=== PATIENT | female | born 1995 | race Caucasian/White ===

== ENCOUNTER → 2017-07-06 | Outpatient (CLI) | payer BC ==
--- NOTE | 2017-07-06 22:55 | MR ---
EXAMINATION TYPE: MR brain wo con DATE OF EXAM: 07/06/2017 COMPARISON: NONE HISTORY: Hyperreflexia and abnormal reflexes with weakness, possible demyelinating disease per order. Headaches with dizziness or hearing loss per patient. TECHNIQUE: Multiplanar, multisequence imaging of the brain and brainstem is performed without IV cont rast. FINDINGS: Diffusion weighted images demonstrate no evidence of a recent infarct or other diffusion abnormality. There is no extraaxial fluid collection or significant white matter signal abnormality. The ventricu lar system and cisternal spaces are normal in size and appearance. The brain volume is age appropria te. Midline structures demonstrate normal morphology. The craniocervical junction appears within normal limits. Normal vascular flow voids are present. The globes are distorted by artifact. Visualized para nasal sinuses are clear. IMPRESSION: No significant white matter changes. No significant finding is seen to account for patien t's symptoms.
== END ==
LOC: RADMRIMAIN 17:25
PROVIDERS: ATTEND Psychiatry & Neurology Neurology
DX: G37.9 Demyelinating disease of central nervous system, unspecified (principal)
CPT/HCPCS: 70551

== ENCOUNTER 2017-07-08 17:57 | Emergency (ER) | payer BC ==
[2017-07-08] MEDS ORDERED: SODIUM CHLORIDE 0.9% 1,000 ML IV STA (18:14)
[2017-07-08 18:24] LABS: Glucose,Whole Blood 108 mg/dL (75-99)
[2017-07-08 18:33] LABS: Basophils % (A) 1 %; Eosinophils # (A) 0.1 k/uL (0-0.7); Eosinophils % (A) 1 %; HCT 39.4 % (34.0-46.0); Lymphocytes # (A) 2.5 k/uL (1.0-4.8); Lymphocytes % (A) 43 %; MCH 28.6 pg (25.0-35.0); MCHC 32.9 g/dL (31.0-37.0); Mean Platelet Volume 7.7; Monocytes # (A) 0.3 k/uL (0-1.0); Monocytes % (A) 4 %; Neutrophils # (A) 2.8 k/uL (1.3-7.7); Neutrophils % (A) 49 %; Platelet Count 215 k/uL (150-450); RBC 4.53 m/uL (3.80-5.40); WBC 5.8 k/uL (3.8-10.6)
--- NOTE | 2017-07-08 18:40 | ED ---
General Adult HPI - General Chief complaint: Dizziness Stated complaint: Dizzy, had a lot of bloody noses Time Seen by Provider: 07/08/17 18:04 Source: patient, RN notes reviewed, old records reviewed Mode of arrival: ambulatory Limitations: no limitations - History of Present Illness Initial comments: Patient 21-year-old female who presents emergency room today with chief complaint of needing blood work. She does admit that she went to urgent care was advised complete emergency room for further evaluation of blood work. States she's had bloody noses. She states that she was just due to some medications that she started to have some corneal oral along with vitamin D. 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 She states she felt short of breath at the time. Patient states that symptoms have improved some. Father states that she had not eaten or drinking all day recently just had some orange juice does feel a little better. Patient states she still feels a little unsteady on her feet. She does admit to feeling congested. She denies any other complaints or symptoms time. - Related Data Home Medications Medication Instructions Recorded Confirmed DULoxetine HCL [Cymbalta] 20 mg PO DAILY 07/08/17 07/08/17 Allergies Allergy/AdvReac Type Severity Reaction Status Date / Time clindamycin Allergy Unknown Verified 07/08/17 18:37 Review of Systems ROS Statement: Those systems with pertinent positive or pertinent negative responses have been documented in the HPI. ROS Other: All systems not noted in ROS Statement are negative. Past Medical History Past Medical History: No Reported History History of Any Multi-Drug Resistant Organisms: None Reported Additional Past Surgical History / Comment(s): bilateral foot surgery Past Psychological History: No Psychological Hx Reported Smoking Status: Never smoker Past Alcohol Use History: None Reported Past Drug Use History: None Reported General Exam - General Exam Comments Initial Comments: General: The patient is awake and alert, in no distress, and does not appear acutely ill. Eye: Pupils are equal, round and reactive to light, extra-ocular movements are intact. No nystagmus. There is normal conjunctiva bilaterally. No signs of icterus. Ears, nose, mouth and throat: There are moist mucous membranes and no oral lesions. Neck: The neck is supple, there is no tenderness or JVD. Cardiovascular: There is a regular rate and rhythm. No murmur, rub or gallop is appreciated. Respiratory: Lungs are clear to auscultation, respirations are non-labored, breath sounds are equal. No wheezes, stridor, rales, or rhonchi. Musculoskeletal: Normal ROM, no tenderness. Strength 5/5. Sensation intact. Pulses equal bilaterally 2+. Neurological: A&O x 3. CN II-XII intact, There are no obvious motor or sensory deficits. Coordination appears grossly intact. Speech is normal. Normal finger nose testing. Normal rapid alternating movements. Strength 5/5 bilaterally both upper and lower extremities. Normal gait. Skin: Skin is warm and dry and no rashes or lesions are noted. Psychiatric: Cooperative, appropriate mood & affect, normal judgment. Limitations: no limitations Course Vital Signs 07/08/17 07/08/17 07/08/17 17:59 18:34 19:20 Temperature 98.1 F 99.0 F Pulse Rate 93 90 Pulse Rate [ 97 Right Sitting] Pulse Rate [ 108 H Right Standing] Pulse Rate [ 81 Right Supine] Respiratory 20 16 18 Rate Blood Pressure 123/75 109/62 Blood Pressure 125/70 [Right Arm Sitting] Blood Pressure 120/73 [Right Arm Standing] Blood Pressure 125/71 [Right Arm Supine] O2 Sat by Pulse 98 97 100 Oximetry - Reevaluation(s) Reevaluation #1: 07/08/17 18:40 Patient had recent MRI of brain just 2 days ago which showed no acute processes. EKG Findings - EKG Comments: EKG Findings:: EKG performed at 1826: A 12-lead EKG was performed and interpreted by me as showing the following: Rate is 75, and rhythm is normal sinus. There are normal QRS complexes and normal R-wave progression. ST segments have no elevation or depression, and NC segments appear normal. Medical Decision Making - Medical Decision Making Reexamined at this time showing no signs of distress. She is resting comfortable. Patient's orthostatic vitals were reviewed. Patient's blood pressure remained stable however, patient's pulse did increase to 15 beats. Patient given a liter bolus here the emergency room states were at this time. Denies any lightheadedness or dizziness at this time. Patient again stating feeling better. Will be discharged home. Patient's remaining labs reviewed unremarkable. Refused chest x-ray stating that she just had this prior at the urgent care was told that was normal. Patient is advised follow-up the family doctor next 2 days and return here to emergency room symptoms increase worsen. - Lab Data Result diagrams: 07/08/17 18:10 07/08/17 18:10 Lab Results 07/08/17 07/08/17 07/08/17 Range/Units 18:10 18:10 18:10 WBC 5.8 (3.8-10.6) k/uL RBC 4.53 (3.80-5.40) m/uL Hgb 13.0 (11.4-16.0) gm/dL Hct 39.4 (34.0-46.0) % MCV 87.0 (80.0-100.0) fL MCH 28.6 (25.0-35.0) pg MCHC 32.9 (31.0-37.0) g/dL RDW 14.0 (11.5-15.5) % Plt Count 215 (150-450) k/uL Neutrophils % 49 % Lymphocytes % 43 % Monocytes % 4 % Eosinophils % 1 % Basophils % 1 % Neutrophils # 2.8 (1.3-7.7) k/uL Lymphocytes # 2.5 (1.0-4.8) k/uL Monocytes # 0.3 (0-1.0) k/uL Eosinophils # 0.1 (0-0.7) k/uL Basophils # 0.0 (0-0.2) k/uL D-Dimer 0.37 (<0.60) mg/L FEU Sodium 141 (137-145) mmol/L Potassium 3.8 (3.5-5.1) mmol/L Chloride 104 (98-107) mmol/L Carbon Dioxide 25 (22-30) mmol/L Anion Gap 12 mmol/L BUN 9 (7-17) mg/dL Creatinine 0.70 (0.52-1.04) mg/dL Est GFR (MDRD) Af Amer >60 (>60 ml/min/1.73 sqM) Est GFR (MDRD) Non-Af >60 (>60 ml/min/1.73 sqM) Glucose 106 H (74-99) mg/dL POC Glucose (mg/dL) (75-99) mg/dL POC Glu Splitter Hand ID Calcium 9.9 (8.4-10.2) mg/dL Total Bilirubin 0.2 (0.2-1.3) mg/dL AST 24 (14-36) U/L ALT 35 (9-52) U/L Alkaline Phosphatase 71 (38-126) U/L Total Protein 7.1 (6.3-8.2) g/dL Albumin 4.5 (3.5-5.0) g/dL Urine Color Urine Appearance (Clear) Urine pH (5.0-8.0) Ur Specific [place] (1.001-1.035) Urine Protein (Negative) Urine Glucose (UA) (Negative) Urine Ketones (Negative) Urine Blood (Negative) Urine Nitrite (Negative) Urine Bilirubin (Negative) Urine Urobilinogen (<2.0) mg/dL Ur Leukocyte Esterase (Negative) Urine RBC (0-5) /hpf Urine WBC (0-5) /hpf Ur Squamous Epith Cells (0-4) /hpf Urine Mucus (None) /hpf Urine HCG, Qual (Not Detectd) 07/08/17 07/08/17 07/08/17 Range/Units 18:23 19:00 19:00 WBC (3.8-10.6) k/uL RBC (3.80-5.40) m/uL Hgb (11.4-16.0) gm/dL Hct (34.0-46.0) % MCV (80.0-100.0) fL MCH (25.0-35.0) pg MCHC (31.0-37.0) g/dL RDW (11.5-15.5) % Plt Count (150-450) k/uL Neutrophils % % Lymphocytes % % Monocytes % % Eosinophils % % Basophils % % Neutrophils # (1.3-7.7) k/uL Lymphocytes # (1.0-4.8) k/uL Monocytes # (0-1.0) k/uL Eosinophils # (0-0.7) k/uL Basophils # (0-0.2) k/uL D-Dimer (<0.60) mg/L FEU Sodium (137-145) mmol/L Potassium (3.5-5.1) mmol/L Chloride (98-107) mmol/L Carbon Dioxide (22-30) mmol/L Anion Gap mmol/L BUN (7-17) mg/dL Creatinine (0.52-1.04) mg/dL Est GFR (MDRD) Af Amer (>60 ml/min/1.73 sqM) Est GFR (MDRD) Non-Af (>60 ml/min/1.73 sqM) Glucose (74-99) mg/dL POC Glucose (mg/dL) 108 H (75-99) mg/dL POC Glu Splitter Hand ID Annia Martinez Calcium (8.4-10.2) mg/dL Total Bilirubin (0.2-1.3) mg/dL AST (14-36) U/L ALT (9-52) U/L Alkaline Phosphatase (38-126) U/L Total Protein (6.3-8.2) g/dL Albumin (3.5-5.0) g/dL Urine Color Light Yellow Urine Appearance Clear (Clear) Urine pH 6.5 (5.0-8.0) Ur Specific [place] 1.007 (1.001-1.035) Urine Protein Negative (Negative) Urine Glucose (UA) Negative (Negative) Urine Ketones Negative (Negative) Urine Blood Negative (Negative) Urine Nitrite Negative (Negative) Urine Bilirubin Negative (Negative) Urine Urobilinogen <2.0 (<2.0) mg/dL Ur Leukocyte Esterase Trace H (Negative) Urine RBC 1 (0-5) /hpf Urine WBC 2 (0-5) /hpf Ur Squamous Epith Cells 1 (0-4) /hpf Urine Mucus Rare H (None) /hpf Urine HCG, Qual Not Detected (Not Detectd) Disposition Clinical Impression: Orthostatic dizziness Disposition: HOME SELF-CARE Condition: Good Instructions: Dizziness (ED) Additional Instructions: Please increase oral fluids as discussed and follow-up the family doctor over the next 2 days. Please return here to emergency room if any symptoms increase or worsen or for any other concerns. Referrals: Nguyen Marin MD [Primary Care Provider] - 1-2 days Time of Disposition: 19:30
[2017-07-08 18:41] LABS: ALT 35 U/L (9-52); AST 24 U/L (14-36); Albumin 4.5 g/dL (3.5-5.0); Alkaline Phosphatase 71 U/L (38-126); Anion Gap 12 mmol/L; Blood Urea Nitrogen 9 mg/dL (7-17); Calcium 9.9 mg/dL (8.4-10.2); Carbon Dioxide 25 mmol/L (22-30); Chloride 104 mmol/L (98-107); Glucose 106 mg/dL (74-99); Potassium 3.8 mmol/L (3.5-5.1); Sodium 141 mmol/L (137-145); Total Bilirubin 0.2 mg/dL (0.2-1.3); Total Protein 7.1 g/dL (6.3-8.2)
[2017-07-08 19:18] LABS: Appearance,Urine Clear (Clear); Bilirubin,Urine Negative (Negative); Blood,Urine Negative (Negative); Color,Urine Light Yellow; Glucose,Urine (UA) Negative (Negative); Ketones,Urine Negative (Negative); Leukocyte Esterase,Urine Trace (Negative); Mucus,Urine Rare /hpf; Nitrite,Urine Negative (Negative); PH, Urine 6.5 (5.0-8.0); Protein,Urine Negative (Negative); RBC,Urine 1 /hpf (0-5); Specific Gravity,Urine 1.007 (1.001-1.035); Squamous Epithelial Cell,Urine 1 /hpf (0-4); Urobilinogen,Urine <2.0 mg/dL (<2.0); WBC,Urine 2 /hpf (0-5)
[2017-07-08 19:40] VITALS: BP 124/58; PULSE 95; RESP 16; TEMP 98.7
[2017-07-08 23:15] LABS: Hemoglobin A1C 4.8 % (4.0-6.0)
== END 2017-07-08 19:42 | disposition home or self-care (01) ==
LOC: EC 17:57
DX: R42 Dizziness and giddiness (principal); R04.0 Epistaxis; Z79.899 Other long term (current) drug therapy; Z88.1 Allergy status to other antibiotic agents
CPT/HCPCS: 36415; 80053; 81001; 81025; 83036; 85025; 85379; 87086; 93005; 96360; 99284

== ENCOUNTER → 2017-07-14 | Outpatient (CLI) | payer BC ==
--- NOTE | 2017-07-14 15:12 | MR ---
EXAMINATION TYPE: MR cervical spine wo con DATE OF EXAM: 07/14/2017 COMPARISON: NONE HISTORY: Cervical disc displacement,Abn reflex TECHNIQUE: Multiplanar, multisequence images of the cervical spine were acquired. C2-C3: No evidence for degenerative disc disease. No disc bulge/herniation or protrusion. No Canal stenosis. Foramina are patent bilaterally. C3-C4: No evidence for degenerative disc disease. No disc bulge/herniation or protrusion. No Canal stenosis. Foramina are patent bilaterally. C4-C5: No evidence for degenerative disc disease. No disc bulge/herniation or protrusion. No Canal stenosis. Foramina are patent bilaterally. C5-C6: There may be some mild right foraminal narrowing at C5-6 from uncovertebral joint hypertrophy. Minimal left foraminal narrowing may be present. Correlate with symptoms. C6-C7: No evidence for degenerative disc disease. No disc bulge/herniation or protrusion. No Canal stenosis. Foramina are patent bilaterally. C7-T1: No evidence for degenerative disc disease. No disc bulge/herniation or protrusion. No Canal stenosis. Foramina are patent bilaterally. There is normal alignment. Cervical spinal cord is of normal signal. Craniovertebral junction relat ionships are within normal limits. Cervical disc heights are preserved. Hydration levels appear norm al. IMPRESSION: There may be some uncovertebral joint hypertrophy greater on the right at C5-6 foraminal narrowing. 2. MRI cervical spine is otherwise unremarkable.
== END | disposition home or self-care (01) ==
LOC: RADMRIMAIN 08:20
PROVIDERS: ATTEND Psychiatry & Neurology Neurology
DX: M50.20 Other cervical disc displacement, unspecified cervical region (principal); R29.2 Abnormal reflex; R20.2 Paresthesia of skin
CPT/HCPCS: 72141

== ENCOUNTER → 2018-01-02 | Outpatient (CLI) | payer BC ==
[2018-01-02 15:49] LABS: Appearance,Urine Clear (Clear); Basophils % (A) 1 %; Bilirubin,Urine Negative (Negative); Blood,Urine Negative (Negative); Color,Urine Colorless; Eosinophils # (A) 0.1 k/uL (0-0.7); Eosinophils % (A) 2 %; Glucose,Urine (UA) Negative (Negative); HCT 42.5 % (34.0-46.0); HGB 14.4 gm/dL (11.4-16.0); Ketones,Urine Negative (Negative); Leukocyte Esterase,Urine Negative (Negative); Lymphocytes % (A) 35 %; MCH 30.5 pg (25.0-35.0); MCHC 33.8 g/dL (31.0-37.0); MCV 90.4 fL (80.0-100.0); Mean Platelet Volume 7.5; Monocytes # (A) 0.2 k/uL (0-1.0); Monocytes % (A) 4 %; Neutrophils # (A) 3.3 k/uL (1.3-7.7); Neutrophils % (A) 57 %; Nitrite,Urine Negative (Negative); Platelet Count 212 k/uL (150-450); Protein,Urine Negative (Negative); RDW 14.4 % (11.5-15.5); Specific Gravity,Urine 1.005 (1.001-1.035); Urobilinogen,Urine <2.0 mg/dL (<2.0); WBC 5.7 k/uL (3.8-10.6)
[2018-01-02 16:07] LABS: ALT 23 U/L (9-52); AST 19 U/L (14-36); Albumin 4.5 g/dL (3.5-5.0); Alkaline Phosphatase 55 U/L (38-126); Anion Gap 11 mmol/L; Blood Urea Nitrogen 10 mg/dL (7-17); C Reactive Protein <5.0 mg/L (<10.0); Calcium 9.5 mg/dL (8.4-10.2); Carbon Dioxide 28 mmol/L (22-30); Chloride 101 mmol/L (98-107); Creatine Kinase 38 U/L (30-135); Glucose 104 mg/dL (74-99); Sodium 140 mmol/L (137-145); Total Bilirubin 0.1 mg/dL (0.2-1.3); Total Protein 6.9 g/dL (6.3-8.2); Uric Acid 3.6 mg/dL (3.7-7.4)
[2018-01-02 16:21] LABS: T4, Free (Free Thyroxine) 0.95 ng/dL (0.78-2.19)
[2018-01-02 18:25] LABS: Erythrocyte Sedimentation Rate 5 mm/hr (0-20)
[2018-01-03 00:45] LABS: Rheumatoid Factor 7 IU/mL (0-15)
[2018-01-03 00:55] LABS: Protein, Total 6.9 g/dL (6.2-8.2)
[2018-01-03 01:03] LABS: Vitamin D 25 Hydroxy 20.4 ng/mL (30.0-100.0)
[2018-01-03 01:38] LABS: Shrimp IgE <0.10 kU/L; Walnut IgE (Food) <0.10 kU/L
[2018-01-03 01:55] LABS: Cardiolipin Ab IgG Interp NEGATIVE (NEGATIVE); Cardiolipin Ab IgM Interp NEGATIVE (NEGATIVE); Cardiolipin IgA Antibody <0.5 U/mL; Cardiolipin IgM Antibody 0.8 U/mL; Cyclic Citrullinated Pep IgG NEGATIVE (NEGATIVE); DNA Double-Stranded NEGATIVE (NEGATIVE); RNP <0.2 AI; Scleroderma SC-70 Ab <0.2 AI
[2018-01-03 01:57] LABS: Hepatitis C IgG Antibody Non-Reactive (Non-Reactive)
[2018-01-03 05:58] LABS: Angiotensin-1 Converting Enz. 61 U/L (8-52)
[2018-01-03 11:10] LABS: HLA B27 NEGATIVE
[2018-01-03 13:32] LABS: Apple IgE Class CLASS 0; Beef IgE <0.35 kU/L (<0.35); Beef IgE Class CLASS 0; Crab IgE <0.35 kU/L (<0.35); Crab IgE Class CLASS 0; Lettuce IgE Class CLASS 0; Oat IgE Class CLASS 0; Yeast Bakers/Brew IgE <0.35 kU/L (<0.35)
[2018-01-03 13:33] LABS: Avocado Class CLASS 0; Banana IgE Class CLASS 0; Celery IgE <0.35 kU/L (<0.35); Celery IgE Class CLASS 0; Chicken IgE Class CLASS 0; Chocolate IgE Class CLASS 0; Coffee IgE <0.35 kU/L (<0.35); Coffee IgE Class CLASS 0; Cow's Milk IgE Class CLASS 0; Egg White IgE <0.35 kU/L (<0.35); Hazelnut IgE <0.35 kU/L (<0.35); Hazelnut IgE Class CLASS 0; Kiwi IgE <0.35 kU/L (<0.35); Peanut IgE <0.35 kU/L (<0.35); Potato IgE <0.35 kU/L (<0.35); Potato IgE Class CLASS 0; Soybean IgE <0.35 kU/L (<0.35)
[2018-01-03 13:58] LABS: APTT 44 Sec(s) (<43); APTT 1:1 Mix 40 Sec(s) (<43); Dilute Russell Viper Venom 35 Sec(s) (<44)
[2018-01-03 14:34] LABS: C-ANCA <1:20 Titer (<1:20); P-ANCA <1:20 Titer (<1:20)
[2018-01-04 04:19] LABS: Aldolase 2.6 U/L (1.2-7.6)
[2018-01-04 12:34] LABS: Pork IgE Class CLASS 0
[2018-01-04 12:35] LABS: Egg Yolk IgE Class CLASS 0; Onion IgE <0.35 kU/L (<0.35); Onion IgE Class CLASS 0; Salmon IgE <0.35 kU/L (<0.35); Salmon IgE Class CLASS 0
[2018-01-04 12:36] LABS: Gluten IgE Class CLASS 0; Latex IgE Class CLASS 0; Lobster IgE <0.35 kU/L (<0.35); Lobster IgE Class CLASS 0; Tea IgE <0.35 kU/L (<0.35)
== END | disposition home or self-care (01) ==
LOC: LABWHC1 14:49
PROVIDERS: ATTEND Internal Medicine Rheumatology
DX: J30.89 Other allergic rhinitis (principal); R76.8 Other specified abnormal immunological findings in serum
CPT/HCPCS: 36415; 80053; 81003; 82085; 82164; 82306; 82550; 83883; 84165; 84439; 84443; 84550; 85025; 85613; 85652; 85730; 86001; 86003; 86038; 86140; 86147; 86160; 86162; 86200; 86225; 86235; 86255; 86334; 86431; 86803; 86812; 87340

== ENCOUNTER → 2018-02-01 | Outpatient (CLI) | payer BC ==
[2018-02-02 01:00] LABS: Cyclic Citrullinated Pep IgG NEGATIVE (NEGATIVE); Gliadin AB IgA, Unit 9.2 U/mL
[2018-02-03 04:47] LABS: Angiotensin-1 Converting Enz. 75 U/L (8-52)
[2018-02-05 11:56] LABS: Anti-Endomysial IgA Antibody <1:10 Titer (<1:10)
== END | disposition home or self-care (01) ==
LOC: LABWHC1 16:01
PROVIDERS: ATTEND Nurse Practitioner Family
DX: K90.0 Celiac disease (principal); R74.8 Abnormal levels of other serum enzymes
CPT/HCPCS: 36415; 82164; 83516; 86200; 86255

== ENCOUNTER → 2018-02-22 | Outpatient (CLI) | payer BC ==
[2018-02-22 15:22] LABS: Basophils % (A) 0 %; Eosinophils % (A) 1 %; HGB 13.8 gm/dL (11.4-16.0); Lymphocytes # (A) 2.1 k/uL (1.0-4.8); Lymphocytes % (A) 47 %; MCHC 33.7 g/dL (31.0-37.0); MCV 89.2 fL (80.0-100.0); Mean Platelet Volume 7.6; Monocytes # (A) 0.3 k/uL (0-1.0); Monocytes % (A) 7 %; Neutrophils % (A) 43 %; Platelet Count 194 k/uL (150-450); RDW 13.4 % (11.5-15.5); WBC 4.5 k/uL (3.8-10.6)
[2018-02-22 19:47] LABS: Protein, Total 6.9 g/dL (6.2-8.2)
[2018-02-23 05:50] LABS: Toxoplasma Antibody (IgG) <3.0 IU/mL (<7.2); Toxoplasma Antibody (IgM) <3.0 AU/mL (<8.0)
== END | disposition home or self-care (01) ==
LOC: LABWHC1 14:20
PROVIDERS: ATTEND Nurse Practitioner Family
DX: R59.1 Generalized enlarged lymph nodes (principal); R53.83 Other fatigue; J31.2 Chronic pharyngitis; R79.89 Other specified abnormal findings of blood chemistry
CPT/HCPCS: 36415; 83883; 84165; 85025; 86038; 86644; 86645; 86698; 86777; 86778

== ENCOUNTER → 2018-03-02 | Outpatient (CLI) | payer BC ==
[2018-03-02 13:26] LABS: ALT 27 U/L (9-52); AST 21 U/L (14-36); Albumin 4.2 g/dL (3.5-5.0); Alkaline Phosphatase 59 U/L (38-126); Anion Gap 8 mmol/L; Blood Urea Nitrogen 6 mg/dL (7-17); Calcium 9.4 mg/dL (8.4-10.2); Carbon Dioxide 28 mmol/L (22-30); Chloride 105 mmol/L (98-107); Glucose 89 mg/dL (74-99); Potassium 4.2 mmol/L (3.5-5.1); Sodium 141 mmol/L (137-145); Total Bilirubin 0.4 mg/dL (0.2-1.3); Total Protein 6.9 g/dL (6.3-8.2)
[2018-03-02 18:33] LABS: Rheumatoid Factor 10 IU/mL (0-15)
== END | disposition home or self-care (01) ==
LOC: LABWHC1 12:17
PROVIDERS: ATTEND Internal Medicine Critical Care Medicine
DX: R06.00 Dyspnea, unspecified (principal)
CPT/HCPCS: 36415; 80053; 82164; 85652; 86038; 86431

== ENCOUNTER → 2018-03-09 | Outpatient (CLI) | payer BC | END | disposition home or self-care (01) | LOC: RADCTMAIN 18:36 | PROVIDERS: ATTEND Internal Medicine Critical Care Medicine | DX: Z53.9 Procedure and treatment not carried out, unspecified reason (principal) | CPT/HCPCS: 71260 ==

== ENCOUNTER → 2018-03-23 | Outpatient (CLI) | payer BC ==
[2018-03-23 12:42] LABS: T4, Free (Free Thyroxine) 0.94 ng/dL (0.78-2.19)
[2018-03-23 16:24] LABS: Thyroid Peroxidase Antibodies 42.4 U/mL (0.0-60.0)
== END ==
LOC: LABWHC1 11:17
PROVIDERS: ATTEND Otolaryngology
DX: L65.9 Nonscarring hair loss, unspecified (principal); R53.83 Other fatigue
CPT/HCPCS: 36415; 82607; 82728; 84439; 84443; 86376; 86618

== ENCOUNTER → 2018-04-25 | Outpatient (CLI) | payer BC | LOC: LABWHC1 15:17 | PROVIDERS: ATTEND Otolaryngology | DX: E06.9 Thyroiditis, unspecified (principal) | CPT/HCPCS: 36415; 86376 ==

== ENCOUNTER 2018-05-07 11:59 | Day surgery (SDC) | payer BC ==
[~2018-05-07 11:59] MED LIST: LACTATED RINGERS 1,000 ML IV SCH
[2018-05-07] MEDS ORDERED: LIDOCAINE 1% 20 ML VIAL (10MG/ML) FOR IV START INTRADERMA ONE (12:57)
[2018-05-07 13:01] VITALS: RESP 16; TEMP 98.2
[2018-05-07] MEDS ORDERED: MIDAZOLAM 2 MG/2 ML VIAL ONE (13:48)
[2018-05-07] MEDS ORDERED: fentaNYL (PF) 50 MCG/ML 2 ML AMP ONE (13:48)
[2018-05-07] MEDS ORDERED: LIDOCAINE 1% INJ 10MG/ML (20 ML MDV) ONE (13:48)
[2018-05-07] MEDS ORDERED: ETOMIDATE 2 MG/ML 10 ML VIAL ONE (13:48)
--- NOTE | 2018-05-07 14:17 | P.PCN ---
Date of Procedure: 05/07/18 Procedure(s) Performed: Procedure: Esophagogastroduodenoscopy and biopsy. Preoperative diagnosis: Chronic stomach issues and recent onset of dysphagia. Postoperative diagnosis: 1. Small sliding hiatal hernia with no obvious esophagitis or complicated reflux disease. 2. Mild gastritis with few small and diminutive polyps in the gastric body. 3. Multiple biopsies obtained from the duodenum, antrum and esophagus as well as the gastric body polyps. Preparation sedation: Was provided by anesthesia. Brief clinical history: The patient is a 22-year-old female who is scheduled for this evaluation because of chronic reflux symptoms and stomach issues. The patient has recent onset of dysphagia but no other alarm symptoms. This evaluation is to assess the degree of esophagitis and rule out complicated reflux disease, eosinophilic esophagitis or other pathology. Procedure: With the patient on her left lateral decubitus position and after informed consent and adequate sedation, I passed the Olympus-GIF 160 video upper endoscope through the cricopharyngeus down the esophagus. GE junction was around 40 cm from the incisors and there was a small sliding hiatal hernia but no obvious esophagitis or complicated reflux disease. The endoscope was then passed into the stomach which was insufflated with air and inspected in detail including the retroflex view in the cardia. There was minimal mottling and erythema in the stomach but no ulcers or erosions. There were occasional small and diminutive gastric body polyps. Pyloric channel, duodenal bulb, post bulbar area and descending duodenum appeared within normal limits. Because of her symptoms, I obtained biopsies from the duodenum, antrum and esophagus in addition to biopsies of the gastric body polyps then the endoscope was withdrawn. The patient tolerated the procedure well. Plan: The patient was reassured. Will await biopsy results. Further plans can be made based on her course and biopsy results. She will follow-up with you as planned, and I will keep you updated on her progress.
[2018-05-07 14:34] VITALS: BP 107/70; PULSE 88
== END 2018-05-07 15:09 | disposition home or self-care (01) ==
LOC: ORWHC2ENDO 11:59
DX: K31.7 Polyp of stomach and duodenum (principal); K29.70 Gastritis, unspecified, without bleeding; K44.9 Diaphragmatic hernia without obstruction or gangrene; F32.9 Major depressive disorder, single episode, unspecified; Z79.899 Other long term (current) drug therapy; Z88.1 Allergy status to other antibiotic agents; Z91.012 Allergy to eggs
CPT/HCPCS: 81025; 88305; 84703; 43239; J2250; J2001; J3010

== ENCOUNTER → 2018-05-24 | Day surgery (SDC) | payer BC ==
[2018-05-21 15:49] VITALS: BMI 19.6
[~2018-05-24] MED LIST changes: +ALBUTEROL NEB (CONC) 2.5 MG/0.5 ML INHALATION ONE; +ATROPINE SULFATE 0.4 MG/ML 1 ML VIAL IM ONE; +LACTATED RINGERS 1,000 ML IV ONE; +LIDOCAINE 1% 20 ML VIAL (10MG/ML) FOR IV START INTRADERMA PRN; +LIDOCAINE 2% (PF) 20 MG/ML 2 ML AMP INHALATION ONE; +LIDOCAINE VISCOUS 2% 15 ML CUP MUCOUS MEM ONE; +MIDAZOLAM 2 MG/2 ML VIAL IV PRN
[2018-05-24 11:49] VITALS: BP 126/72; PULSE 91; RESP 16; TEMP 98.5
== END ==
LOC: ORWHC2ENDO 11:15
PROVIDERS: ATTEND Internal Medicine Critical Care Medicine
DX: R06.00 Dyspnea, unspecified (principal); Z53.8 Procedure and treatment not carried out for other reasons; F41.9 Anxiety disorder, unspecified
CPT/HCPCS: 84703; J0461

== ENCOUNTER → 2018-07-23 | Outpatient (CLI) | payer BC ==
--- NOTE | 2018-07-23 15:52 | US ---
EXAMINATION TYPE: US kidneys/renal and bladder DATE OF EXAM: 07/23/2018 COMPARISON: NONE CLINICAL HISTORY: R30.0 Dysuria. bilateral flank pain EXAM MEASUREMENTS: Right Kidney: 10.4 x 3.5 x 4.4 cm Left Kidney: 9.8 x 4.2 x 5.2 cm Right Kidney: No hydronephrosis or masses seen Left Kidney: No hydronephrosis or masses seen Bladder: wnl Bilateral Jets seen: Yes There is no evidence for hydronephrosis at this point in time. No nephrolithiasis is seen. No madi s are identified. The urinary bladder is anechoic. Bilateral ureteral jets are seen. Incidentally noted cholelithiasis. IMPRESSION: No sonographic evidence of hydronephrosis or nephrolithiasis. Incidentally noted cholelithiasis.
== END | disposition home or self-care (01) ==
LOC: RADUSWWP 14:54
PROVIDERS: ATTEND Family Medicine
DX: K80.20 Calculus of gallbladder without cholecystitis without obstruction (principal)
CPT/HCPCS: 76770

== ENCOUNTER → 2018-09-26 | Outpatient (CLI) | payer BC ==
--- NOTE | 2018-09-26 13:22 | CT ---
EXAMINATION TYPE: CT sinus wo con DATE OF EXAM: 09/26/2018 COMPARISON: MRI brain July 06, 2017 HISTORY: Chronic sinusitis per order. Recurrent facial pain. CT DLP: 625 mGycm. Automated Exposure Control for Dose Reduction was Utilized. TECHNIQUE: CT scan of the sinuses is performed without contrast, axial images are obtained, coronal r eformatted images are also reviewed. FINDINGS: The paranasal sinuses including the frontal, ethmoid, sphenoid, and maxillary sinuses bila terally are well-aerated without abnormal opacification. No suspicious opacification or air-fluid lev els are seen. The ostiomeatal complex is patent bilaterally on the coronal images. Visualized portion of mastoid air cells show no abnormal opacification. The globes are intact bilate rally. IMPRESSION: No significant acute or chronic paranasal sinus disease.
== END | disposition home or self-care (01) ==
LOC: RADCTMAIN 12:59
PROVIDERS: ATTEND Otolaryngology
DX: J32.9 Chronic sinusitis, unspecified (principal)
CPT/HCPCS: 70486

== ENCOUNTER → 2018-11-22 | Outpatient (CLI) | payer BC ==
[2018-11-23 11:25] LABS: Angiotensin-1 Converting Enz. 61 U/L (8-52)
== END | disposition home or self-care (01) ==
LOC: LABWHC1 10:46
PROVIDERS: ATTEND Nurse Practitioner Family
DX: R53.83 Other fatigue (principal); R59.1 Generalized enlarged lymph nodes; R21 Rash and other nonspecific skin eruption; T78.3XXA Angioneurotic edema, initial encounter
CPT/HCPCS: 36415; 82164; 83520; 86038; 86160; 86161

== ENCOUNTER 2019-01-12 16:14 | Emergency (ER) | payer BC ==
[2019-01-12 16:19] VITALS: BP 110/75; PULSE 96; RESP 18; TEMP 98.9
--- NOTE | 2019-01-12 16:44 | XR ---
EXAMINATION TYPE: XR soft tissue neck DATE OF EXAM: 01/12/2019 COMPARISON: NONE HISTORY: Neck pain TECHNIQUE: 2 views FINDINGS: Vertebra have normal spacing and alignment. Posterior elements are intact. There are no cer vical ribs. Atlantoaxial facet joint is normal. Epiglottis is normal. Subglottic trachea appears norm al. IMPRESSION: Normal cervical soft tissue exam.
--- NOTE | 2019-01-12 17:13 | ED ---
ENT HPI - General Chief complaint: ENT Stated complaint: SORE THROAT Time Seen by Provider: 01/12/19 16:20 Source: patient Mode of arrival: ambulatory Limitations: no limitations - History of Present Illness Initial comments: 23-year-old female sent in for 1 day of sore throat P patient states she has had a sore throat for 1 day. She states is painful swelling. Patient denies any difficulty swallowing or breathing. Patient denies nausea vomiting abdominal pain. Patient denies . Patient denies ALLERGIES to penicillins. Remaining review of systems negative upon arrival patient appears well no signs of acute distress. - Related Data Home Medications Medication Instructions Recorded Confirmed DULoxetine HCL [Cymbalta] 20 mg PO DAILY 07/08/17 05/21/18 Amino Acids 700 mg PO DAILY PRN 05/04/18 05/21/18 L.acidoph,Paracasei, B.lactis 1 each PO DAILY 05/04/18 05/21/18 [Probiotic] Albuterol Sulfate [Proair Hfa] 1 - 2 puff INHALATION DIRECTED 05/21/18 05/21/18 PRN Allergies Allergy/AdvReac Type Severity Reaction Status Date / Time clindamycin Allergy PSYCHOLOGICAL Verified 01/12/19 16:16 SYMPTOMS Egg Derived Allergy RASH, SOB Verified 01/12/19 16:16 Milk Containing Products Allergy RASH, SOB Verified 01/12/19 16:16 [Dairy] peanut Allergy RASH, SOB Verified 01/12/19 16:16 tomato Allergy RASH, SOB Verified 01/12/19 16:16 wheat Allergy Anaphylaxis Verified 01/12/19 16:16 Review of Systems ROS Statement: Those systems with pertinent positive or pertinent negative responses have been documented in the HPI. ROS Other: All systems not noted in ROS Statement are negative. Past Medical History Past Medical History: Asthma, GERD/Reflux Additional Past Medical History / Comment(s): MULTIPLE FOOD ALLERGIES-CAUSES FREQUENT RESPIRATORY DISTRESS, migraines, seizures as , "occ irregular heart beat", "allergic or exercise induced asthma", has respiratory infection past year-[place] and not dx but thinks walking pneumonia, hiatal hernia, IBS, gallstone, auto immune disorder-"no specific dx" History of Any Multi-Drug Resistant Organisms: None Reported Past Surgical History: Orthopedic Surgery Additional Past Surgical History / Comment(s): bilateral foot surgery/ tendons, wisdom teeth Past Anesthesia/Blood Transfusion Reactions: Motion Sickness, Postoperative Nausea & Vomiting (PONV) Past Psychological History: Anxiety, Depression Smoking Status: Never smoker Past Alcohol Use History: None Reported Past Drug Use History: None Reported - Past Family History Mother Family Medical History: No Reported History Father Family Medical History: Cancer General Exam - General Exam Comments Initial Comments: General: The patient is awake and alert, in no distress, and does not appear acutely ill. Eye: +3 mm pupils are equal, round and reactive to light, extra-ocular movements are intact. No nystagmus. There is normal conjunctiva bilaterally. No signs of icterus. No photophobia Ears, nose, mouth and throat: There are moist mucous membranes and no oral lesions. Oropharynx is erythematous tonsils enlargement bilaterally with tonsillar exudates. Uvula midline. Tympanic membranes are not erythematous or is no effusions bulging or retraction. No tenderness to palpation of the mastoid. No anterior cervical lymphadenopathy. Rhinorrhea, clear and bilateral nares. No tripoding, no drooling. Neck: The neck is supple, there is no tenderness or JVD. No nuchal rigidity Cardiovascular: There is a regular rate and rhythm. No murmur, rub or gallop is appreciated. Respiratory: Lungs are clear to auscultation, respirations are non-labored, breath sounds are equal. No wheezes, stridor, rales, or rhonchi. No retractions or abdominal breathing. Gastrointestinal: Soft, non-distended, non-tender abdomen without masses or organomegaly noted. There is no rebound or guarding present. Bowel sounds are unremarkable. Musculoskeletal: Normal ROM, no tenderness. Strength 5/5. Sensation intact. Radial pulses equal bilaterally 2+. Neurological: A&O x 3. CN II-XII intact, There are no obvious motor or sensory deficits. Coordination appears grossly intact. Speech appears normal, no muffling. Skin: Skin is warm and dry and no rashes or lesions are noted. No extremity edema Psychiatric: Cooperative Limitations: no limitations Course Vital Signs 01/12/19 16:16 Temperature 98.9 F Pulse Rate 96 Respiratory 18 Rate Blood Pressure 110/75 O2 Sat by Pulse 97 Oximetry Medical Decision Making - Medical Decision Making Appearing 23-year-old female presented for sore throat x 1 day. Patient given 8 mg by mouth Decadron. Oropharynx examination today for strep pharyngitis. Patient be treated with amoxicillin. Return parameters were discussed at length. However at this time there is no complicated process seen, uvula midline no tripoding or muffled voice. Patient is agreeable care plan as well as discharge. Patient is discharged appearing well with instruction to follow- up with outpatient primary care provider Disposition Clinical Impression: Anterior neck pain Disposition: HOME SELF-CARE Condition: Good Additional Instructions: Please use medication as discussed. Please follow-up with family doctor in the next 2 days of symptoms, and Keren as discussed. Please return to emergency room if the symptoms increase or worsen or for any other concerns. Is patient prescribed a controlled substance at d/c from ED?: No Referrals: Dillon Payne III, MD [STAFF PHYSICIAN] - 1-2 days Gary Veliz DO [Doctor of Osteopathic Medicine] - 1-2 days Time of Disposition: 17:13
== END 2019-01-12 17:38 | disposition home or self-care (01) ==
LOC: EC 16:14
DX: M54.2 Cervicalgia (principal); J34.89 Other specified disorders of nose and nasal sinuses; J45.909 Unspecified asthma, uncomplicated; F32.9 Major depressive disorder, single episode, unspecified; F41.9 Anxiety disorder, unspecified; Z88.1 Allergy status to other antibiotic agents; Z91.010 Allergy to peanuts; Z91.011 Allergy to milk products; Z91.012 Allergy to eggs; Z91.018 Allergy to other foods; Z79.899 Other long term (current) drug therapy
CPT/HCPCS: 70360; 99283

== ENCOUNTER → 2019-04-09 | Outpatient (CLI) | payer BC ==
--- NOTE | 2019-04-09 12:49 | CT ---
EXAMINATION TYPE: CT soft tissue neck w con DATE OF EXAM: 04/09/2019 COMPARISON: March 09, 2018 HISTORY: dysphagia, swelling, hoarseness CT DLP: 272.8 mGycm CONTRAST: CT scan of the neck is performed with IV Contrast, patient injected with 100 mL of Isovue 300. Contrast enhanced CT of the neck was performed from the skull base through the lung apices. AIRWAY: The supraglottic, glottic, and subglottic portions of the airway appear patent and free of mass. SALIVARY GLANDS: The submandibular and parotid glands are free of mass or inflammatory process. THYROID GLAND: No nodules or masses seen. LYMPH NODES: No adenopathy seen greater than 1cm. LUNG APICES: No nodule or mass is seen. OTHER: Vascular structures are patent. No significant degenerative change of the cervical spine. N o abscess seen. IMPRESSION: UNREMARKABLE CT SOFT TISSUES OF THE NECK.
== END ==
LOC: RADCTMAIN 11:48
PROVIDERS: ATTEND Otolaryngology
DX: F45.8 Other somatoform disorders (principal); R07.0 Pain in throat; M54.2 Cervicalgia; A69.20 Lyme disease, unspecified
CPT/HCPCS: 70491; Q9967

== ENCOUNTER 2019-04-19 19:22 | Emergency (ER) | payer BC ==
[2019-04-19 19:34] VITALS: RESP 18
[2019-04-19] MEDS ORDERED: KETOROLAC 30 MG/ML 1 ML VIAL IM STA (20:24)
--- NOTE | 2019-04-19 20:58 | XR ---
EXAMINATION TYPE: XR elbow complete LT DATE OF EXAM: 04/19/2019 COMPARISON: NONE HISTORY: Elbow pain after fall TECHNIQUE: 3 views FINDINGS: Joint spaces are normal. I see no fracture nor dislocation. There is however a small sdc teacher ior fat pad suggestive of elbow joint effusion. IMPRESSION: Elbow joint effusion. Occult fracture is possible. No displaced fracture seen.
--- NOTE | 2019-04-19 21:03 | XR ---
EXAMINATION TYPE: XR wrist complete LT DATE OF EXAM: 04/19/2019 COMPARISON: NONE HISTORY: Pain TECHNIQUE: 4 views FINDINGS: Carpal bones appear intact. Joint spaces appear normal. I see no fracture nor dislocation. IMPRESSION: Negative left wrist exam.
--- NOTE | 2019-04-19 21:05 | XR ---
EXAMINATION TYPE: XR ribs LT w pa chest xray DATE OF EXAM: 04/19/2019 COMPARISON: NONE HISTORY: Pain TECHNIQUE: 5 views FINDINGS: Heart and mediastinum are normal. Lungs are clear. Diaphragm is normal. The left ribs appea r intact. There is no pleural effusion or pneumothorax. IMPRESSION: Normal chest. Normal left ribs.
--- NOTE | 2019-04-19 21:20 | ED ---
Upper Extremity HPI - General Chief Complaint: Extremity Injury, Upper Stated Complaint: Arm injury Time Seen by Provider: 04/19/19 20:20 Source: patient, family Mode of arrival: ambulatory Limitations: no limitations - History of Present Illness Initial Comments: 23-year-old female patient presents to the emergency department today for evaluation of left elbow pain and left rib pain after falling from her skateboard. Patient states she was wearing a helmet. Denies hitting her head or losing consciousness. She denies any neck or back pain. Patient states she is having significant pain to the left arm she thinks he may be stemming from the elbow or the wrist. States that the arm is feeling cold. She denies any numbness or tingling to the fingers. Denies any previous injury to the arm. Patient denies any headache, chest pain, shortness of breath, dizziness, weakness, abdominal pain, nausea, vomiting, or difficulties with bowel movements or urination. - Related Data Home Medications Medication Instructions Recorded Confirmed DULoxetine HCL [Cymbalta] 20 mg PO DAILY 07/08/17 05/21/18 Amino Acids 700 mg PO DAILY PRN 05/04/18 05/21/18 L.acidoph,Paracasei, B.lactis 1 each PO DAILY 05/04/18 05/21/18 [Probiotic] Albuterol Sulfate [Proair Hfa] 1 - 2 puff INHALATION DIRECTED 05/21/1805/21 PRN Allergies Allergy/AdvReac Type Severity Reaction Status Date / Time clindamycin Allergy PSYCHOLOGICAL Verified 04/19/19 19:34 SYMPTOMS Egg Derived Allergy RASH, SOB Verified 04/19/19 19:34 Milk Containing Products Allergy RASH, SOB Verified 04/19/19 19:34 [Dairy] peanut Allergy RASH, SOB Verified 04/19/19 19:34 tomato Allergy RASH, SOB Verified 04/19/19 19:34 wheat Allergy Anaphylaxis Verified 04/19/19 19:34 Review of Systems ROS Statement: Those systems with pertinent positive or pertinent negative responses have been documented in the HPI. ROS Other: All systems not noted in ROS Statement are negative. Past Medical History Past Medical History: Asthma, GERD/Reflux Additional Past Medical History / Comment(s): MULTIPLE FOOD ALLERGIES-CAUSES FREQUENT RESPIRATORY DISTRESS, migraines, seizures as , "occ irregular heart beat", "allergic or exercise induced asthma", has respiratory infection past year-[place] and [place] dx but thinks walking pneumonia, hiatal hernia, IBS, gallstone, auto immune disorder-"no specific dx" History of Any Multi-Drug Resistant Organisms: None Reported Past Surgical History: Orthopedic Surgery Additional Past Surgical History / Comment(s): bilateral foot surgery/ tendons, wisdom teeth Past Anesthesia/Blood Transfusion Reactions: Motion Sickness, Postoperative Nausea & Vomiting (PONV) Past Psychological History: Anxiety, Depression Smoking Status: Never smoker Past Alcohol Use History: None Reported Past Drug Use History: None Reported - Past Family History Mother Family Medical History: No Reported History Father Family Medical History: Cancer General Exam Limitations: no limitations General appearance: alert, in no apparent distress, other (Physical well- developed, well-nourished adult female patient in no acute distress. Vital signs upon presentation are temperature 98.6F, pulse 93, respirations 18, blood pressure 123/71, pulse ox 100% on room air.) Eye exam: Present: normal appearance, PERRL, EOMI. Absent: scleral icterus, conjunctival injection, periorbital swelling ENT exam: Present: normal exam, normal oropharynx, mucous membranes moist Neck exam: Present: normal inspection, full ROM, other (Nontender, no step-off, no deformity to firm midline palpation of the posterior cervical spine. Full range of motion without pain or limitation.). Absent: tenderness, meningismus, lymphadenopathy Respiratory exam: Present: normal lung sounds bilaterally. Absent: respiratory distress, wheezes, rales, rhonchi, stridor Cardiovascular Exam: Present: regular rate, normal rhythm, normal heart sounds. Absent: systolic murmur, diastolic murmur, rubs, gallop, clicks GI/Abdominal exam: Present: soft, normal bowel sounds. Absent: distended, tenderness, guarding, rebound, rigid Extremities exam: Present: normal inspection, normal capillary refill, other (Skin to the left arm is pink, warm, dry. Cap refills less than 3 seconds. Patient is range of motion to the left wrist but reports increased pain. No anatomical snuffbox tenderness. Radial pulses are 2+ and equal bilaterally.). Absent: full ROM (Decreased range of motion to the left elbow due to increased pain with movement), tenderness, pedal edema, joint swelling, calf tenderness Neurological exam: Present: alert, oriented X3, CN II-XII intact Psychiatric exam: Present: normal affect, normal mood Skin exam: Present: warm, dry, intact, normal color. Absent: rash Course Vital Signs 04/19/19 19:32 Temperature 98.6 F Pulse Rate 93 Respiratory 18 Rate Blood Pressure 123/71 O2 Sat by Pulse 100 Oximetry Procedures - Orthopedic Splinting/Casting Injury #1 Side: left Upper Extremity Injury Location: long arm, elbow Upper Extremity Immobilizer: posterior splint, Homer wrap Additional Comments: Neurovascular status intact after splint application. Skin to the left hand is pink, warm, dry. Cap refills less than 3 seconds. Radial pulses 2+ and equal bilaterally. Medical Decision Making - Medical Decision Making 23-year-old female patient presents to the emergency department today for evaluation of left arm pain and left rib pain after experiencing a fall from her skateboard. Patient was wearing a helmet. Physical examination did reveal decreased range of motion to the left elbow due to increased pain with movement. X-rays of the left wrist are obtained and were unremarkable. X-ray of the left elbow did reveal elbow joint effusion with possibility of occult fracture. X-ray of the chest and left ribs are obtained and was unremarkable. Patient was placed in a long arm posterior splint to the left arm. She is given a starter pack for Tylenol with codeine. Did offer prescription for ibuprofen, she refuses stating she had this at home. She is instructed to follow-up with service desk specialist for further evaluation as soon as possible. Return parameters were discussed in detail. She verbalizes understanding and agrees with this plan. - Radiology Data Radiology results: report reviewed, image reviewed 3 views of the left elbow are obtained. Report was reviewed in its entirety. Impression by Dr. Portillo shows elbow joint effusion. Occult fracture is possible. No displaced fracture seen. 5 views of the left ribs and chest are obtained. Report is reviewed in its entirety. Impression by Dr. Portillo shows normal chest with normal left ribs. 4 views of the left wrist are obtained. Report was reviewed in its entirety. Impression by Dr. Portillo shows negative left wrist exam. Disposition Clinical Impression: Left elbow fracture Disposition: HOME SELF-CARE Condition: Good Instructions (If sedation given, give patient instructions): Elbow Fracture (ED), How to Use a Sling (ED), Splint Care (ED) Additional Instructions: Keep splint in place until follow-up with service desk specialist. Ice to the area 20 minutes at a time at least 4 times daily. Take Tylenol Motrin for pain control. Follow-up with your primary care physician for recheck in 1-2 days. Follow-up with service desk specialist as soon as possible. Return to the emergency department immediately for any new, worsening, or concerning symptoms. Is patient prescribed a controlled substance at d/c from ED?: No Referrals: Nguyen Marin MD [Primary Care Provider] - 1-2 days Time of Disposition: 21:20
[2019-04-19] MEDS ORDERED: ACET/COD 300 MG/30 MG STARTER PACK 6 TAB BTL PO STA (21:33)
[2019-04-19 21:51] VITALS: BP 121/77; PULSE 83; TEMP 98
== END 2019-04-19 21:54 | disposition home or self-care (01) ==
LOC: EC 19:22
DX: S42.402A Unspecified fracture of lower end of left humerus, initial encounter for closed fracture (principal); F41.9 Anxiety disorder, unspecified; F32.9 Major depressive disorder, single episode, unspecified; Z79.899 Other long term (current) drug therapy; Z88.1 Allergy status to other antibiotic agents; Z91.012 Allergy to eggs; Z91.011 Allergy to milk products; Z91.010 Allergy to peanuts; Z91.018 Allergy to other foods; V00.131A Fall from skateboard, initial encounter; Y93.51 Activity, roller skating (inline) and skateboarding
CPT/HCPCS: 71101; 73080; 73110; 99283; 29105; 96372; J1885

== ENCOUNTER → 2019-10-02 | Outpatient (CLI) | payer BC ==
[2019-10-02 11:03] LABS: Basophils % (A) 1 %; Eosinophils % (A) 1 %; HCT 46.9 % (34.0-46.0); Lymphocytes # (A) 1.3 k/uL (1.0-4.8); Lymphocytes % (A) 29 %; MCH 29.8 pg (25.0-35.0); MCV 90.2 fL (80.0-100.0); Mean Platelet Volume 8.3; Monocytes # (A) 0.2 k/uL (0-1.0); Monocytes % (A) 4 %; Neutrophils # (A) 2.9 k/uL (1.3-7.7); Neutrophils % (A) 63 %; Platelet Count 222 k/uL (150-450); RBC 5.19 m/uL (3.80-5.40); RDW 14.1 % (11.5-15.5); WBC 4.6 k/uL (3.8-10.6)
[2019-10-02 11:05] LABS: ALT 11 U/L (4-34); AST 21 U/L (14-36); African American GFR (CKD) >90 (>60 ml/min/1.73 sqM); Albumin 4.9 g/dL (3.5-5.0); Alkaline Phosphatase 77 U/L (38-126); Anion Gap 10 mmol/L; Blood Urea Nitrogen 8 mg/dL (7-17); Calcium 9.6 mg/dL (8.4-10.2); Carbon Dioxide 29 mmol/L (22-30); Chloride 101 mmol/L (98-107); Glucose 92 mg/dL (74-99); Non-African American GFR(CKD) >90 (>60 ml/min/1.73 sqM); Potassium 4.1 mmol/L (3.5-5.1); Sodium 140 mmol/L (137-145); Total Bilirubin 0.4 mg/dL (0.2-1.3); Total Protein 7.9 g/dL (6.3-8.2)
[2019-10-02 11:07] LABS: HGB 15.5 gm/dL (11.4-16.0)
--- NOTE | 2019-10-02 12:04 | CT ---
EXAMINATION TYPE: CT abdomen pelvis w con DATE OF EXAM: 10/02/2019 COMPARISON: NONE HISTORY: 23-year-old female generalized abdominal pain, dysuria, constipation since fall 10 days ago TECHNIQUE: Contiguous axial scanning of the abdomen and pelvis following administration of 100 ml Iso kenya 300 IV contrast. Delayed images through the kidneys and coronal/sagittal reconstructions perform ed. CT DLP: 325.7 mGycm Automated exposure control for dose reduction was used. FINDINGS: LUNG BASES: No significant abnormality is appreciated. LIVER/GB: Small area of focal fat along the anterior falciform ligament. No other focal lesion. No bi liary ductal dilatation. Portal venous system is patent. There appears to be a small 4 mm gallstone. No abnormal gallbladder distention. PANCREAS: No significant abnormality is seen. SPLEEN: No significant abnormality is seen. ADRENALS: No significant abnormality is seen. KIDNEYS: No significant abnormality is seen. REPRODUCTIVE ORGANS: Uterus anteverted. Left ovary not clearly delineated from adjacent bowel loops. There is a 2.1 cm cystic structure within the right ovary. Trace cul-de-sac free fluid likely physiol ogic. LYMPH NODES: No mesenteric or retroperitoneal lymphadenopathy. BOWEL: Small caliber normal appendix. Mild circumferential wall thickening upper ascending colon lik abhinav due to nondistention. No pericolic inflammatory change. Is moderate stool within the rectum. PELVIS: Minimal circumferential bladder wall thickening. Mild cul-de-sac free fluid no abnormal lymph adenopathy in the pelvis. BONES: No osseous destructive process. IMPRESSION: 1. THE TECHNOLOGIST NOTES THAT THE PATIENT WAS PREMEDICATED WITH BENADRYL A PRECAUTIONARY MEASURE DUE TO ALLERGY WITHIN THE FAMILY. THE PATIENT WAS ANXIOUS THROUGHOUT THE PROCESS AND EXPERIENCED A VA SOVAGAL EPISODE AFTER IV PLACEMENT; EXAMINED BY NURSING AND RADIOLOGY. 2. TINY GALLSTONE. NO CT FINDINGS OF ACUTE CHOLECYSTITIS. 3. MILD CIRCUMFERENTIAL WALL THICKENING INVOLVING A SHORT SEGMENT OF THE UPPER ASCENDING COLON LIKELY DUE TO NONDISTENTION. CORRELATE FOR ANY POTENTIAL SYMPTOMS OF A MILD COLITIS. 4. VERY MILD CIRCUMFERENTIAL BLADDER WALL THICKENING COULD REPRESENT CYSTITIS. CLINICALLY CORRELATE. 5. MODERATE STOOL WITHIN THE RECTUM. 6. MILD CUL-DE-SAC FREE FLUID LIKELY PHYSIOLOGIC. A 2.1 CM DOMINANT FOLLICLE OR FUNCTIONAL CYST IN TH E RIGHT OVARY.
== END | disposition home or self-care (01) ==
LOC: RADCTMAIN 09:31
PROVIDERS: ATTEND Family Medicine
DX: K80.20 Calculus of gallbladder without cholecystitis without obstruction (principal); K63.89 Other specified diseases of intestine; N32.89 Other specified disorders of bladder; R10.10 Upper abdominal pain, unspecified; R30.0 Dysuria; R35.0 Frequency of micturition
CPT/HCPCS: 80053; 85025; 74177; 36415; Q9967

== ENCOUNTER 2020-11-07 13:08 | Emergency (ER) | payer BC ==
[2020-11-07] MEDS ORDERED: SODIUM CHLORIDE 0.9% 1,000 ML IV STA (13:50)
--- NOTE | 2020-11-07 13:54 | ED ---
Abdominal Pain HPI - General Chief Complaint: Abdominal Pain Stated Complaint: poss appy Time Seen by Provider: 11/07/20 13:46 Source: patient, RN notes reviewed Mode of arrival: ambulatory Limitations: no limitations - History of Present Illness Initial Comments: Patient is a 25-year-old female that presents to the emergency department complaining of abdominal pain mostly in the right lower quadrant. She notes that she started feeling under the weather approximately 2 days ago. She noted that she did have one episode of vomiting randomly in the middle of the week last week. But since then has not had any vomiting or nausea. She states that her pain is approximately a 4-5 out of 10 with no aggravating or alleviating factors that she knows of. She does follow-up with an BUSINESS PROCESS ENGINEER and does have a history of some ovarian cysts. She denied any chest pain shortness of breath headache nausea diarrhea constipation fever fatigue chills hematochezia melena. - Related Data Home Medications Medication Instructions Recorded Confirmed DULoxetine HCL [Cymbalta] 20 mg PO DAILY 07/08/17 05/21/18 Amino Acids 700 mg PO DAILY PRN 05/04/18 05/21/18 L.acidoph,Paracasei, B.lactis 1 each PO DAILY 05/04/18 05/21/18 [Probiotic] Albuterol Sulfate [Proair Hfa] 1 - 2 puff INHALATION DIRECTED 05/21/18 05/21/18 PRN Allergies Allergy/AdvReac Type Severity Reaction Status Date / Time clindamycin Allergy PSYCHOLOGICAL Verified 11/07/20 13:42 SYMPTOMS Egg Derived Allergy RASH, SOB Verified 11/07/20 13:42 Milk Containing Products Allergy RASH, SOB Verified 11/07/20 13:42 [Dairy] peanut Allergy RASH, SOB Verified 11/07/20 13:42 tomato Allergy RASH, SOB Verified 11/07/20 13:42 wheat Allergy Anaphylaxis Verified 11/07/20 13:42 Review of Systems ROS Statement: Those systems with pertinent positive or pertinent negative responses have been documented in the HPI. ROS Other: All systems not noted in ROS Statement are negative. Past Medical History Past Medical History: Asthma, GERD/Reflux Additional Past Medical History / Comment(s): MULTIPLE FOOD ALLERGIES-CAUSES FREQUENT RESPIRATORY DISTRESS, migraines, seizures as , "occ irregular heart beat", "allergic or exercise induced asthma", has respiratory infection past year-[place] and not dx but thinks walking pneumonia, hiatal hernia, IBS, gallstone, auto immune disorder-"no specific dx" History of Any Multi-Drug Resistant Organisms: None Reported Past Surgical History: Orthopedic Surgery Additional Past Surgical History / Comment(s): bilateral foot surgery/ tendons, wisdom teeth Past Anesthesia/Blood Transfusion Reactions: Motion Sickness, Postoperative Nausea & Vomiting (PONV) Past Psychological History: Anxiety, Depression Smoking Status: Never smoker Past Alcohol Use History: None Reported Past Drug Use History: None Reported - Past Family History Mother Family Medical History: No Reported History Father Family Medical History: Cancer General Exam Limitations: no limitations General appearance: alert, in no apparent distress Head exam: Present: atraumatic, normocephalic, normal inspection Eye exam: Present: normal appearance, PERRL, EOMI. Absent: scleral icterus, conjunctival injection, periorbital swelling Neck exam: Present: normal inspection. Absent: tenderness, meningismus, lympha denopathy Respiratory exam: Present: normal lung sounds bilaterally. Absent: respiratory distress, wheezes, rales, rhonchi, stridor Cardiovascular Exam: Present: regular rate, normal rhythm, normal heart sounds. Absent: systolic murmur, diastolic murmur, rubs, gallop, clicks GI/Abdominal exam: Present: soft, tenderness (Mild and right lower quadrant to deep palpation), normal bowel sounds. Absent: distended, guarding, rebound, rigid Extremities exam: Present: normal inspection, full ROM, normal capillary refill. Absent: tenderness, pedal edema, joint swelling, calf tenderness Neurological exam: Present: alert, oriented X3, CN II-XII intact Psychiatric exam: Present: normal affect, normal mood Skin exam: Present: warm, dry, intact, normal color. Absent: rash Course Vital Signs 11/07/20 13:40 Temperature 98.5 F Pulse Rate 112 H Respiratory 20 Rate Blood Pressure 125/79 O2 Sat by Pulse 100 Oximetry Medical Decision Making - Medical Decision Making 25-year-old female with abdominal pain mostly in the right lower quadrant 2 days. Labs, 1 L normal saline, CT of the abdomen and pelvis, ultrasound of the pelvis to rule out torsion ordered. Labs unremarkable. Patient declined pelvic ultrasound initially declined computed tomography scan as her way this route she didn't want to be admitted for surgery. After discussion patient decided to get computed tomography scan but did not want contrast. Case discussed with Dr. Mijares, patient can discharge home. - Lab Data Result diagrams: 11/07/20 13:57 11/07/20 13:57 Lab Results 11/07/20 11/07/20 11/07/20 Range/Units 13:57 13:57 13:57 WBC 5.7 (3.8-10.6) k/uL RBC 4.94 (3.80-5.40) m/uL Hgb 15.2 (11.4-16.0) gm/dL Hct 45.3 (34.0-46.0) % MCV 91.6 (80.0-100.0) fL MCH 30.7 (25.0-35.0) pg MCHC 33.5 (31.0-37.0) g/dL RDW 12.7 (11.5-15.5) % Plt Count 237 (150-450) k/uL MPV 7.5 Neutrophils % 56 % Lymphocytes % 37 % Monocytes % 5 % Eosinophils % 1 % Basophils % 1 % Neutrophils # 3.2 (1.3-7.7) k/uL Lymphocytes # 2.1 (1.0-4.8) k/uL Monocytes # 0.3 (0-1.0) k/uL Eosinophils # 0.0 (0-0.7) k/uL Basophils # 0.0 (0-0.2) k/uL Sodium (137-145) mmol/L Potassium (3.5-5.1) mmol/L Chloride (98-107) mmol/L Carbon Dioxide (22-30) mmol/L Anion Gap mmol/L BUN (7-17) mg/dL Creatinine (0.52-1.04) mg/dL Est GFR (CKD-EPI)AfAm (>60 ml/min/1.73 sqM) Est GFR (CKD-EPI)NonAf (>60 ml/min/1.73 sqM) Glucose (74-99) mg/dL Calcium (8.4-10.2) mg/dL Total Bilirubin (0.2-1.3) mg/dL AST (14-36) U/L ALT (4-34) U/L Alkaline Phosphatase (38-126) U/L Total Protein (6.3-8.2) g/dL Albumin (3.5-5.0) g/dL Amylase (30-110) U/L Lipase (23-300) U/L Urine Color Colorless Urine Appearance Clear (Clear) Urine pH 6.5 (5.0-8.0) Ur Specific [place] 1.005 (1.001-1.035) Urine Protein Negative (Negative) Urine Glucose (UA) Negative (Negative) Urine Ketones Negative (Negative) Urine Blood Negative (Negative) Urine Nitrite Negative (Negative) Urine Bilirubin Negative (Negative) Urine Urobilinogen <2.0 (<2.0) mg/dL Ur Leukocyte Esterase Negative (Negative) Urine HCG, Qual Not Detected (Not Detectd) 11/07/20 Range/Units 13:57 WBC (3.8-10.6) k/uL RBC (3.80-5.40) m/uL Hgb (11.4-16.0) gm/dL Hct (34.0-46.0) % MCV (80.0-100.0) fL MCH (25.0-35.0) pg MCHC (31.0-37.0) g/dL RDW (11.5-15.5) % Plt Count (150-450) k/uL MPV Neutrophils % % Lymphocytes % % Monocytes % % Eosinophils % % Basophils % % Neutrophils # (1.3-7.7) k/uL Lymphocytes # (1.0-4.8) k/uL Monocytes # (0-1.0) k/uL Eosinophils # (0-0.7) k/uL Basophils # (0-0.2) k/uL Sodium 141 (137-145) mmol/L Potassium 3.8 (3.5-5.1) mmol/L Chloride 104 (98-107) mmol/L Carbon Dioxide 29 (22-30) mmol/L Anion Gap 8 mmol/L BUN 10 (7-17) mg/dL Creatinine 0.59 (0.52-1.04) mg/dL Est GFR (CKD-EPI)AfAm >90 (>60 ml/min/1.73 sqM) Est GFR (CKD-EPI)NonAf >90 (>60 ml/min/1.73 sqM) Glucose 89 (74-99) mg/dL Calcium 9.8 (8.4-10.2) mg/dL Total Bilirubin 0.6 (0.2-1.3) mg/dL AST 22 (14-36) U/L ALT 14 (4-34) U/L Alkaline Phosphatase 69 (38-126) U/L Total Protein 7.9 (6.3-8.2) g/dL Albumin 5.0 (3.5-5.0) g/dL Amylase 126 H (30-110) U/L Lipase 468 H (23-300) U/L Urine Color Urine Appearance (Clear) Urine pH (5.0-8.0) Ur Specific [place] (1.001-1.035) Urine Protein (Negative) Urine Glucose (UA) (Negative) Urine Ketones (Negative) Urine Blood (Negative) Urine Nitrite (Negative) Urine Bilirubin (Negative) Urine Urobilinogen (<2.0) mg/dL Ur Leukocyte Esterase (Negative) Urine HCG, Qual (Not Detectd) - Radiology Data Radiology results: report reviewed, image reviewed CT of the abdomen and pelvis: Single calcified gallstone. Otherwise negative computed tomography scan of the abdomen and pelvis. Disposition Clinical Impression: Abdominal pain, Cholelithiasis Disposition: HOME SELF-CARE Condition: Stable Instructions (If sedation given, give patient instructions): Abdominal Pain (ED) Additional Instructions: Please return to the Emergency Department if symptoms worsen or any other concerns. Follow-up with primary care in 5-7 days. Can take [id number] pain medications for symptom control. Increase oral fluids. Is patient prescribed a controlled substance at d/c from ED?: No Referrals: Nguyen Marin MD [Primary Care Provider] - 1-2 days Time of Disposition: 15:35
[2020-11-07 14:05] LABS: Basophils % (A) 1 %; Eosinophils % (A) 1 %; HCT 45.3 % (34.0-46.0); HGB 15.2 gm/dL (11.4-16.0); Lymphocytes # (A) 2.1 k/uL (1.0-4.8); Lymphocytes % (A) 37 %; MCH 30.7 pg (25.0-35.0); MCHC 33.5 g/dL (31.0-37.0); MCV 91.6 fL (80.0-100.0); Mean Platelet Volume 7.5; Monocytes # (A) 0.3 k/uL (0-1.0); Monocytes % (A) 5 %; Neutrophils # (A) 3.2 k/uL (1.3-7.7); Neutrophils % (A) 56 %; Platelet Count 237 k/uL (150-450); RBC 4.94 m/uL (3.80-5.40); RDW 12.7 % (11.5-15.5); WBC 5.7 k/uL (3.8-10.6)
[2020-11-07 14:07] LABS: Appearance,Urine Clear (Clear); Bilirubin,Urine Negative (Negative); Blood,Urine Negative (Negative); Color,Urine Colorless; Glucose,Urine (UA) Negative (Negative); Ketones,Urine Negative (Negative); Leukocyte Esterase,Urine Negative (Negative); Nitrite,Urine Negative (Negative); PH, Urine 6.5 (5.0-8.0); Protein,Urine Negative (Negative); Specific Gravity,Urine 1.005 (1.001-1.035); Urobilinogen,Urine <2.0 mg/dL (<2.0)
[2020-11-07 14:15] LABS: ALT 14 U/L (4-34); AST 22 U/L (14-36); African American GFR (CKD) >90 (>60 ml/min/1.73 sqM); Alkaline Phosphatase 69 U/L (38-126); Amylase 126 U/L (30-110); Anion Gap 8 mmol/L; Blood Urea Nitrogen 10 mg/dL (7-17); Calcium 9.8 mg/dL (8.4-10.2); Carbon Dioxide 29 mmol/L (22-30); Chloride 104 mmol/L (98-107); Glucose 89 mg/dL (74-99); Lipase 468 U/L (23-300); Non-African American GFR(CKD) >90 (>60 ml/min/1.73 sqM); Potassium 3.8 mmol/L (3.5-5.1); Sodium 141 mmol/L (137-145); Total Bilirubin 0.6 mg/dL (0.2-1.3); Total Protein 7.9 g/dL (6.3-8.2)
--- NOTE | 2020-11-07 15:17 | CT ---
EXAMINATION TYPE: CT abdomen pelvis wo con DATE OF EXAM: 11/07/2020 COMPARISON: 10/02/2019 HISTORY: Lower abdominal pain. CT DLP: 256.9 mGycm Automated exposure control for dose reduction was used. Images obtained from the diaphragm to the floor the pelvis with no contrast. Lung bases are clear. There is no pleural effusion. Heart size is normal. There is no pericardial eff usion. Liver spleen pancreas stomach gallbladder appear intact. The bile ducts are not dilated. There is single calcified gallstone. There is no adrenal mass. Kidneys have normal size. There is no hydronephrosis. Ureters are not dilat ed. There is no retroperitoneal adenopathy. Bladder distends smoothly. Uterus is anteverted. There is no pelvic mass. There is no free fluid in the pelvis. Appendix is not definitely seen. There is no sign of thickened appendix. There is no mesenteric edema . There is no ascites or free air. There is no bowel obstruction. Lumbar vertebra have normal spacing and alignment. Posterior elements are intact. There is no antonio fabiana fracture. Bony pelvis is intact. Hip joints appear normal. There is bone island in the left acet abulum. IMPRESSION: Single calcified gallstone. Otherwise negative CT scan of the abdomen pelvis.
[2020-11-07 15:50] VITALS: BP 116/78; PULSE 90; RESP 18; TEMP 98
== END 2020-11-07 15:56 | disposition home or self-care (01) ==
LOC: EC 13:08
DX: K80.20 Calculus of gallbladder without cholecystitis without obstruction (principal); J45.909 Unspecified asthma, uncomplicated; F32.9 Major depressive disorder, single episode, unspecified; F41.9 Anxiety disorder, unspecified; K21.9 Gastro-esophageal reflux disease without esophagitis
CPT/HCPCS: 36415; 74176; 80053; 81003; 81025; 82150; 83690; 85025; 99284